=== PATIENT | female | born 1950 | race Caucasian/White ===

== ENCOUNTER → 2020-08-15 11:41 | Outpatient (BNVA) | payer OTHER, SELFPAY | PROVIDERS: PCP Internal Medicine; Referring Provider Dermatology; Visit Provider Orthopaedic Surgery | DX: M54.9 Dorsalgia, unspecified (principal) | CPT/HCPCS: 72110 ==

== ENCOUNTER 2020-08-30 09:27 | Outpatient (CLI) | payer MEDICARE, MEDICAID, SELFPAY ==
--- NOTE | 2020-08-30 09:30 | USCV_ITS ---
Cassi Hyman Age: 70 Gender: F : 1950 Exam Date: 08/30/2020 09:53 Ordering Phys: Eusebio Damon MD Technologist: Nida Clarke [place] [facility] [place]: NSTEMI BP: 101 / 49 HR: 73 Rhythm: Sinus Technical Quality: Adequate MEASUREMENTS (Male / Female) Normal Values 2D ECHO LV Diastolic Diameter PLAX 3.8 cm 4.2 - 5.9 / 3.9 - 5.3 cm LV Systolic Diameter PLAX 2.1 cm LV Chamber Size 3.1 cm IVS Diastolic Thickness 1.1 cm 0.6 - 1.0 / 0.6 - 0.9 cm IVS Systolic Thickness 1.2 cm LVPW Diastolic Thickness 1.6 cm 0.6 - 1.0 / 0.6 - 0.9 cm LVPW Systolic Thickness 1.3 cm RV Chamber Size 2.3 cm LVOT Diameter 2.1 cm LV Ejection Fraction 2D Teich 77.8 % LV Ejection Fraction MOD 2C 72.7 % LV Ejection Fraction 2C AL 76.5 % LA Diameter 4.4 cm LA Width 2.5 cm LA Height 5.2 cm RA Width 3.4 cm RA Height 4.6 cm Aorta at Sinotubular Diameter 2.5 cm M-MODE LV Diastolic Diameter MM 4.2 cm 4.2 - 5.9 / 3.9 - 5.3 cm LV Systolic Diameter MM 2.9 cm LV Ejection Fraction MM Teich 60.4 % IVS Diastolic Thickness MM 1.1 cm 0.6 - 1.0 / 0.6 - 0.9 cm IVS Systolic Thickness MM 1.5 cm LVPW Diastolic Thickness MM 1.0 cm 0.6 - 1.0 / 0.6 - 0.9 cm LVPW Systolic Thickness MM 1.7 cm RV Diastolic Diameter MM 0.7 cm Aortic Annulus Diameter 2.7 cm LA Ao Ratio MM 1.9 MV E Point Septal Separation 0.3 cm DOPPLER AV Peak Velocity 176.0 cm/s LVOT Peak Velocity 95.0 cm/s AV Area Cont Eq vti 2.0 cm squared AV Area Cont Eq pk 1.8 cm squared MV Area PHT 3.1 cm squared MV E' Velocity 57.5 cm/s Mitral E to MV E' Ratio 10.8 Mitral E to LV E' Lateral Ratio 12.5 Mitral E to LV E' Septal Ratio 9.5 TR Peak Velocity 215.5 cm/s TR Peak Gradient 18.6 mmHg TR Mean Velocity 166.0 cm/s TR Mean Gradient 11.9 mmHg TR Velocity Time Integral 54.4 cm TV Peak E Velocity 76.0 cm/s Right Atrial Pressure 3.0 mmHg Pulmonary Artery Systolic Pressu 21.6 mmHg PV Peak Velocity 53.0 cm/s RV Acceleration Time 0.1 s RV Ejection Time 0.3 s RV AcT/ET 0.5 FINDINGS Left Ventricle Normal left ventricular size, systolic function and wall thickness, with no regional wall motion abnormalities. Left ventricular ejection fraction is estimated at 60-65 %. Normal diastolic function. Right Ventricle Normal right ventricular size and systolic function. Right ventricular systolic pressure 21.6 mmHg. Right Atrium Normal right atrial size. Right atrial pressure estimated at 3 mm Hg. Left Atrium Normal left atrial size. Mitral Valve Structurally normal mitral valve. No mitral valve stenosis. Trace mitral valve regurgitation. Aortic Valve Mildly thickened trileaflet aortic valve. No aortic valve stenosis. No aortic valve regurgitation. Tricuspid Valve Structurally normal tricuspid valve. Trace tricuspid valve regurgitation. Pulmonic Valve Pulmonic valve not well visualized. Pericardium No pericardial effusion. Aorta Normal sized inferior vena cava with normal respiratory variations. CONCLUSIONS 1. Normal left ventricular size, systolic function and wall thickness, with no regional wall motion abnormalities. Left ventricular ejection fraction is estimated at 60-65 %. Normal diastolic function. 2. Normal right ventricular size and systolic function. 3. No significant valvular abnormality. 4. Normal pulmonary artery pressure. 5. No prior similar studies to compare. Sarah Simon MD (Electronically Signed) Final Date: 30 August 2020 20:41 S
== END 2020-08-30 09:28 | disposition home or self-care (01) ==
LOC: RAD 09:37
PROVIDERS: PCP Internal Medicine; Visit Provider Internal Medicine Pulmonary Disease
DX: I50.32 Chronic diastolic (congestive) heart failure (principal)
CPT/HCPCS: 93306

== ENCOUNTER 2020-09-02 20:00 | Outpatient (CLI) | payer MEDICARE, MEDICAID, SELFPAY | END 2020-09-02 20:01 | disposition home or self-care (01) | LOC: SLEEP 09-03 09:07 | PROVIDERS: PCP Internal Medicine; Visit Provider Internal Medicine Pulmonary Disease | DX: G47.33 Obstructive sleep apnea (adult) (pediatric) (principal) | CPT/HCPCS: 95811 ==

== ENCOUNTER → 2020-09-03 16:10 | Outpatient (BNVA) | payer MEDICARE, MEDICAID, SELFPAY | PROVIDERS: PCP Internal Medicine; Visit Provider Internal Medicine Cardiovascular Disease | DX: I50.32 Chronic diastolic (congestive) heart failure (principal); I50.33 Acute on chronic diastolic (congestive) heart failure; R06.02 Shortness of breath; R07.89 Other chest pain; I48.0 Paroxysmal atrial fibrillation; I10 Essential (primary) hypertension; G47.33 Obstructive sleep apnea (adult) (pediatric); Z71.6 Tobacco abuse counseling | CPT/HCPCS: 80048; 83880 ==

== ENCOUNTER 2020-09-11 12:31 | Outpatient (CLI) | payer MEDICARE, MEDICAID, SELFPAY ==
--- NOTE | 2020-09-11 13:00 | MR_ITS ---
WS: [id number] MRI LUMBAR SPINE NONCONTRAST HISTORY: M48.061 - Spinal stenosis, lumbar region without neurogenic claudication COMPARISON: None available. TECHNIQUE: Sagittal and axial multisequence imaging is submitted. Moderate increase in the cervical lordosis and thoracic kyphosis. Slight increase in the lower lumbar lordotic curvature. Posterior vertebral body alignment is normal. Less than 2 mm anterolisthesis of L5. No marrow edema or fractures. Disc spaces and vertebral body heights are well-preserved. Conus terminates normally at L1-2 disc level. L1-L2: Normal. L2-L3: Normal. L3-L4: Normal. L4-L5: No disc herniations or protrusions. The nerve roots are becoming slightly clumped in the perip beena of the thecal sac. L5-S1: Mild bilateral facet joint arthritis and annular disc bulge. No significant stenosis or disc p rotrusions. Nerve roots are distributed within the periphery of the thecal sac. Mild hepatomegaly. Liver measures 18 cm in length. MR/MR lumbar spine wo con* [id number] IMPRESSION: 1. No significant lumbar stenosis or disc protrusions. 2. Nerve roots are becoming clumped within the thecal sac beginning at the L4- 5 level. Developing mild arachnoiditis should be considered. 3. Mild hepatomegaly.
== END 2020-09-11 12:32 | disposition home or self-care (01) ==
LOC: RADSHAW 12:36
PROVIDERS: PCP Internal Medicine; Visit Provider Orthopaedic Surgery
DX: M48.061 Spinal stenosis, lumbar region without neurogenic claudication (principal); R16.0 Hepatomegaly, not elsewhere classified
CPT/HCPCS: 72148

== ENCOUNTER 2020-10-18 06:01 | Emergency (ER) | payer MEDICARE, MEDICAID, SELFPAY ==
[2020-10-18] VITALS (9 sets, daily range): BP systolic 100–142; BP diastolic 43–80; PULSE 62–71; RESP 12–20; TEMP 36.5; O2SAT 96–97; BMI 40.2
--- NOTE | 2020-10-18 06:12 | XRR_ITS ---
PROCEDURE INFORMATION: Exam: XR Right Knee Exam date and time: 10/18/2020 6:14 AM Age: 70 years old Clinical indication: Injury or trauma; Fall; Blunt trauma; Knee; Right; Injury date: Today; Additional info: Pain after fall TECHNIQUE: Imaging protocol: XR Right knee. Views: 3 views. COMPARISON: No relevant prior studies available. FINDINGS: Bones/joints: No fracture. No dislocation. No joint effusion. Soft tissues: Mild increased density and stranding in the subcutaneous tissue of the anteromedial knee compatible with a contusion given the history of trauma. XR/XR knee RT 3V* [id number] IMPRESSION: Superficial soft tissue injury without osseous injury.
--- NOTE | 2020-10-18 06:13 | ECG_ITS ---
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
--- NOTE | 2020-10-18 06:22 | ED_ITS ---
HPI - Fall General: Chief Complaint: Fall Stated Complaint: fall and hypotension Time Seen by Provider: 10/18/20 06:04 History of Present Illness: HPI Narrative: 70-year-old female presents from residential via ambulance with complaint of hypotension and a fall. She fell at the residential skinned her right knee is complaining of some neck and head pain she has a history of atrial fibrillation and is on anticoagulants. There is no loss of consciousness. correction reported hypotension however she presents with a blood pressure of 113/50. Medications reviewed. MD complaint: fall Onset (ago): minute(s) Fall from: standing Fall witnessed: yes, by living facility staff Place fall occurred: residential/SNF Loss of consciousness: None Prolonged down time: no Context: tripped/slipped Location of injury: head and neck Location of injury - extremities: Right: knee Severity: mild Quality: aching Associated symptoms-after fall: Reports difficulty walking, headache(s) and neck pain; Denies abdominal pain, chest pain, confusion, hematuria, lightheadedness, numbness, short of breath, vertigo or weakness Review of Systems Const: Denies: fever(s), chills, body aches, change in appetite, fatigue or malaise ENMT: Denies: throat pain, ear or mastoid pain, nasal discharge or nasal congestion Card: Denies: chest pain or lightheadedness Resp: Denies: dyspnea, productive cough or non-productive cough GI: Denies: abdominal pain : Denies: hematuria Musc: Reports: neck pain Skin/Breast: Denies: rash or pruritus Neuro: Reports: headache(s) and difficulty walking; Denies: vertigo or confusion PFS ED PFSH: Medical History Atrial fibrillation CHF (congestive heart failure) COPD (chronic obstructive pulmonary disease) H/O: stroke PAD (peripheral artery disease) Family History Grandfather No problems noted. Father CAD (coronary artery disease) Brother CAD (coronary artery disease) Cancer Mother Cancer Sister Cancer Lung disease Daughter Stroke Denies family history of Diabetes Clotting disorder Dementia Chronic kidney disease (CKD) Suicide Anesthesia complication Bleeding disorder Social History (Reviewed 10/18/20 @ 06:36 by MORRO Pate Smoking and tobacco status: current every day smoker cigarettes [ Other cigarette details: [id number] ] Quit status (tobacco): considering quitting Second hand smoke exposure: No Smoking risk assessment/counseling performed?: Yes Alcohol intake: never Desire information about alcohol rehabilitation?: No Counseling given: No Caregiver/support person: Yes Lives independently: Yes Household members: other Housing: [facility] Marital status: Current occupational status: disabled Pets and animals: No History of recent travel: No Current gender identity: Female Physical Exam Const: COMMON NORMALS: no acute distress GENERAL APPEARANCE: cooperative and comfortable HENMT: COMMON NORMALS: normocephalic, atraumatic and hearing grossly normal bilaterally HEAD & SCALP: normocephalic and atraumatic Neck/C-Spine: COMMON NORMALS: no lymphadenopathy, supple and no JVD GENERAL: No lymphadenopathy CERVICAL SPINE: Yes pain with cervical ROM, Yes loss of normal cervical lordosis and Yes Cervical spine tenderness Resp: COMMON NORMALS: normal respiratory effort, No retractions, No use of accessory muscles and clear to auscultation bilaterally AUSCULTATION: clear to auscultation bilaterally Cardio: COMMON NORMALS: no JVD, regular rate, regular rhythm and No murmurs present (Cardio) RATE: regular rate RHYTHM: regular rhythm GI: COMMON NORMALS: Soft to palpation and No hepatosplenomegaly present AUSCULTATION: Yes normoactive bowel sounds PALPATION: Yes Soft to palpation, No Tenderness to palpation present (GI), No Guarding due to palpation present (GI) and Yes No hepatosplenomegaly present Extremity: OTHER: Superficial abrasion lateral portion of the patella of the right knee no joint effusion mild tenderness with palpation no deformity neurovascularly intact Skin: COMMON NORMALS: no rashes or lesions noted GENERAL SKIN EXAM: no rashes or lesions noted Course Vital Signs: Vital signs: Vital Signs Temperature 97.7 F 10/18/20 06:02 Pulse Rate 65 10/18/20 08:01 Respiratory Rate 12 10/18/20 08:01 Blood Pressure 100/57 10/18/20 08:01 Pulse Oximetry 97 10/18/20 08:01 MDM - Fall MDM Narrative: Medical decision making narrative: Reported to be hypotensive at the residential blood pressures have been adequate here. Her creatinine is up a little bit from her usual baseline additionally she is mildly bradycardic a t one brief episode where she dropped into the 30s but resolved spontaneously. I think it would benefit her to decrease her Lasix. Recent echocardiogram showed a normal systolic function normal diastolic function. Additionally will decrease her Cardizem because of her bradycardia. Lasix to 20 mg daily Cardizem 280 mg daily follow-up with your primary care doctor return if worsens. Her imaging was normal. Lab Data: Labs: Lab Results 10/18/20 10/18/20 10/18/20 Range/Units 06:41 06:41 07:26 WBC 7.6 (4.0-10.0) 10^3/ uL RBC 4.04 L (4.1-5.3) 10^6/u L Hgb 12.0 (11.5-15.3) g/dL Hct 37.3 (37.0-47.0) % MCV 92.3 (81-99) fL MCH 29.7 (28.0-34.0) pg MCHC 32.2 (30.0-36.0) g/dL RDW 14.7 (12.1-15.1) % Plt Count 267 (130-400) 10^3/c mm MPV 9.0 (7.4-10.4) fL Neut % (Auto) 46.1 % Lymph % (Auto) 44.2 % [place] % (Auto) 6.3 % Eos % (Auto) 2.2 % Baso % (Auto) 0.8 % Neut # (Auto) 3.48 (1.8-7.7) 10^3/u L Lymph # (Auto) 3.3 (0.8-4.8) 10^3/u L Garden # (Auto) 0.5 (0.2-0.9) 10^3/u L Eos # (Auto) 0.2 (0.0-0.8) 10^3/u L Baso # (Auto) 0.1 (0.0-0.1) 10^3/u L Nucleated RBC % (a uto) 0 % Nucleated RBCs # 0.0 /100WBC Sodium 132 L (136-145) mmol/L Potassium 4.3 (3.5-5.1) mmol/L Chloride 95 L (98-107) mmol/L Carbon Dioxide 28 (22-29) mmol/L Anion Gap 13.3 (5-19) BUN 29 H (8-23) mg/dL Creatinine 1.2 H (0.5-0.9) mg/dL GFR Calculation 44.7 L (90-130) mL/min Glucose 97 (65-115) mg/dL Calculated Osmolal ity 280 L (285-295) mOsm/k g Calcium 9.4 (8.5-10.5) mg/dL Total Bilirubin 0.3 (0.15-1.2) mg/dL AST 13 (0-32) U/L ALT 13 (0-33) U/L Alkaline Phosphata se 75 (35-105) IU/L Total Protein 7.5 (6.6-8.7) g/dL Albumin 4.4 (3.5-5.2) g/dL Globulin 3.1 (1.3-4.6) g/dL Urine Color Yellow (Yellow) Urine Appearance Clear (CLEAR) Urine pH 5 (5-7) Ur Specific Gravit y 1.015 (1.005-1.030) Urine Protein Neg (Negative) Urine Glucose (UA) Norm (Normal) Urine Ketones Negative (Negative) Urine Blood Neg (Negative) Urine Nitrate Negative (Negative) Urine Bilirubin Neg (Negative) Urine Urobilinogen Norm (Negative) mg/dL Ur Leukocyte Sydney ase Negative (Negative) Discharge Plan Discharge Patient Disposition: Home Clinical Impression: Accident due to mechanical fall without injury, Atrial fibrillation, Bradycardi a, Hypotension Condition: Stable Prescriptions: Changed Lasix 40 mg tablet 20 mg PO DAILY Qty: 30 RF: 5 diltiazem HCl 240 mg capsule,extended release 24hr 180 mg PO DAILY Qty: 0 RF: 0 No Action gabapentin 300 mg capsule 300 mg PO TID RF: 0 levothyroxine 88 mcg capsule 88 mcg PO DAILY RF: 0 lisinopril 20 mg tablet 20 mg PO DAILY RF: 0 nitroglycerin 0.4 mg tablet, sublingual 0.4 mg SUBLINGUAL Q5M PRNRF: 0 citalopram 10 mg tablet 10 mg PO DAILY RF: 0 simvastatin 20 mg tablet 20 mg PO DAILY RF: 0 rivaroxaban 20 mg tablet 20 mg PO DAILY RF: 0 Anoro Ellipta 62.5-25 mcg/actuation blister with device 1 inh inhalation DAILY Qty: 60 RF: 3 isosorbide mononitrate 30 mg tablet extended release 24 hr 30 mg PO DAILY Qty: 30 RF: 3 albuterol sulfate [Ventolin HFA] 90 mcg/actuation HFA aerosol inhaler 2 puff inhalation Q2H PRNRF: 0 alprazolam 0.5 mg tablet 0.5 mg PO TID PRN (Reason: anxiety) RF: 0 omeprazole 20 mg capsule,delayed release(DR/EC) 20 mg PO DAILY RF: 0 bisacodyl 10 mg suppository 10 mg DE DAILY PRNRF: 0 magnesium hydroxide [Milk of Magnesia] 400 mg/5 mL suspension 5 ml PO DAILY PRNRF: 0 acetaminophen [Tylenol 8 Hour] 650 mg tablet extended release 650 mg PO Q12H PRN (Reason: fever or pain) RF: 0 sennosides [senna] 8.6 mg tablet 8.6 mg PO DAILY RF: 0 polyethylene glycol 3350 [Miralax] 17 gram/dose powder 17 g PO DAILY RF: 0 alum-mag hydroxide-simeth [Mylanta Maximum Strength] 400-400-40 mg/5 mL suspension 5 ml PO QID PRNRF: 0 oxycodone-acetaminophen [Percocet] 5-325 mg tablet 1 tab PO Q6H PRNRF: 0 potassium chloride 20 mEq tablet extended release 20 meq PO DAILY Qty: 30 RF: 5 Discharge Orders: Discharge ED (Routine); Ordered 10/18/20 Ordered By: Cam Rodriguez Referrals: Momo Murray MD [Primary Care Provider] - Discharge Diet: Usual diet Discharge Activity: Resume usual activity Patient Instructions: Opioid Safety Activity Restrictions/Additional Instructions: Decrease Lasix and Cardizem. Monitor blood pressure and heart rate and report to attending. Coding Level of Care Code ED Bill Cutter for Chg Fwd Exam Detailed
--- NOTE | 2020-10-18 06:28 | CTR_ITS ---
PROCEDURE INFORMATION: Exam: CT Cervical Spine Without Contrast Exam date and time: 10/18/2020 6:37 AM Age: 70 years old Clinical indication: Neck pain; Additional info: Neck pain after fall TECHNIQUE: Imaging protocol: Computed tomography images of the cervical spine without contrast. Radiation optimization: All CT scans at this facility use at least one of these dose optimization techniques: automated exposure control; mA and/or kV adjustment per patient size (includes targeted exams where dose is matched to clinical indication); or iterative reconstruction. COMPARISON: CT Cervical Spine wo* [id number] 11/11/2017 10:43 PM RADIATION DOSE METRICS: Total DLP (mGy-cm): 1146.58 FINDINGS: Bones/joints: No acute fracture. Discs/Spinal canal/Neural foramina: Degenerative changes including mild disc space narrowing, endplate spurring and osteophytes. No critical central canal stenosis. Lungs: No pneumothorax. Soft tissues: Unremarkable. CT/CT cervical spin wo con* [id number] IMPRESSION: No acute fracture. Radiation Dose CTDIVOL = (mGy): DLP = 1146.58 (mGy-cm)
--- NOTE | 2020-10-18 06:29 | CTR_ITS ---
PROCEDURE INFORMATION: Exam: CT Head Without Contrast Exam date and time: 10/18/2020 6:37 AM Age: 70 years old Clinical indication: Injury or trauma; Fall; Blunt trauma (contusions or hematomas); Additional info: Fall, on anticoagulants TECHNIQUE: Imaging protocol: Computed tomography of the head without contrast. Radiation optimization: All CT scans at this facility use at least one of these dose optimization techniques: automated exposure control; mA and/or kV adjustment per patient size (includes targeted exams where dose is matched to clinical indication); or iterative reconstruction. COMPARISON: CT head wo con* [id number] 11/11/2017 10:41 PM RADIATION DOSE METRICS: Total DLP (mGy-cm): 1030.78 FINDINGS: Brain: Right MCA distribution encephalomalacia. Mejía-white matter differentiation is otherwise preserved. No edema, mass effect or midline shift. No acute intracranial hemorrhage. Cerebral ventricles: No ventriculomegaly. Bones/joints: No acute fracture. Paranasal sinuses: Visualized sinuses are unremarkable. No fluid levels. Mastoid air cells: No mastoid effusion. Soft tissues: Unremarkable. CT/CT head wo con* [id number] IMPRESSION: No acute intracranial abnormality. Radiation Dose CTDIVOL = (mGy): DLP = 1030.78 (mGy-cm)
[2020-10-18 06:51] LABS: Basophils # 0.1 10^3/uL (0.0-0.1); Basophils % 0.8 %; Eosinophils # 0.2 10^3/uL (0.0-0.8); Eosinophils % 2.2 %; Hematocrit 37.3 % (37.0-47.0); Lymphocytes # 3.3 10^3/uL (0.8-4.8); Lymphocytes % 44.2 %; Mean Corpuscular HGB Conc 32.2 g/dL (30.0-36.0); Mean Corpuscular Hemoglobin 29.7 pg (28.0-34.0); Mean Corpuscular Volume 92.3 fL (81-99); Monocytes # 0.5 10^3/uL (0.2-0.9); Monocytes % 6.3 %; Neutrophils # 3.48 10^3/uL (1.8-7.7); Neutrophils % 46.1 %; Nucleated Red Blood Cells % 0 %; Platelet Count 267 10^3/cmm (130-400); Red Blood Count 4.04 10^6/uL (4.1-5.3); Red Cell Distribution Width 14.7 % (12.1-15.1); White Blood Count 7.6 10^3/uL (4.0-10.0)
[2020-10-18 07:06] LABS: Alanine Aminotransferase 13 U/L (0-33); Albumin Level 4.4 g/dL (3.5-5.2); Alkaline Phosphatase 75 IU/L (35-105); Anion Gap 13.3 (5-19); Aspartate Amino Transferase 13 U/L (0-32); Blood Urea Nitrogen 29 mg/dL (8-23); Calcium 9.4 mg/dL (8.5-10.5); Carbon Dioxide 28 mmol/L (22-29); Chloride 95 mmol/L (98-107); Globulin 3.1 g/dL (1.3-4.6); Glomerular Filtration Rate 44.7 mL/min (90-130); Glucose 97 mg/dL (65-115); Osmolality Calculated 280 mOsm/kg (285-295); Potassium 4.3 mmol/L (3.5-5.1); Sodium 132 mmol/L (136-145); Total Bilirubin 0.3 mg/dL (0.15-1.2); Total Protein 7.5 g/dL (6.6-8.7)
[2020-10-18 07:33] LABS: Add Urine Microscopic? NO; Charge for UA Resulting for Rev
[2020-10-18 07:46] LABS: Bilirubin Urine Neg (Negative); Blood Urine Neg (Negative); Glucose Urine UA Norm (Normal); Ketones Urine Negative (Negative); Leukocyte Esterase Urine Negative (Negative); Nitrate Urine Negative (Negative); Protein Urine Neg (Negative); Specific Gravity, Urine 1.015 (1.005-1.030); Urine Appearance Clear (CLEAR); Urine Color Yellow (Yellow); Urobilinogen Urine Norm (Negative); pH Urine 5 (5-7)
[2020-10-18] MEDS: sodium chloride 0.9% 1,000 ML 999 ML IV (07:58)
[2020-10-18] MEDS: oxyCODONE-APAP 5-325 mg Tablet 1 TAB PO (12:53)
--- NOTE | 2020-10-18 13:17 | PC.NURSE ---
pain medication given, patient tolerated well. no acute distress noted at this time.
--- NOTE | 2020-10-18 14:33 | PC.NURSE ---
patient stated she felt better, tolerated pain well at this time.
== END 2020-10-18 14:33 | disposition home or self-care (01) ==
PROVIDERS: Emergency Provider Family Medicine; PCP Internal Medicine
DX: I95.9 Hypotension, unspecified (principal); W18.30XA Fall on same level, unspecified, initial encounter; I48.91 Unspecified atrial fibrillation; Z79.01 Long term (current) use of anticoagulants; R00.1 Bradycardia, unspecified; Z79.891 Long term (current) use of opiate analgesic; F17.210 Nicotine dependence, cigarettes, uncomplicated; I50.9 Heart failure, unspecified; J44.9 Chronic obstructive pulmonary disease, unspecified; Z86.73 Personal history of transient ischemic attack (TIA), and cerebral infarction without residual deficits; I73.9 Peripheral vascular disease, unspecified
CPT/HCPCS: 70450; 72125; 73562; 80053; 81003; 85025; 93005; 96360; 99284; J7030

== ENCOUNTER 2020-11-01 10:46 | Outpatient (CLI) | payer MEDICARE, MEDICAID, SELFPAY ==
--- NOTE | 2020-11-01 10:55 | CT_ITS ---
WS: [id number] LDCT LUNG CANCER SCREENING TECHNIQUE: Noncontrast CT of the chest with coronal and sagittal reformatted images. CLINICAL INFORMATION: NICOTINE DEPENDENCE,CIGARETTES COMPARISON: None. DLP: 57.75 mGy.cm DIvol: 1.[address] scans at [facility] use at least one of these dose optimization techniques: automat ed exposure control; mA and/or kV adjustment per patient size (includes targeted exams where dose is matched to clinical indication); or iterative reconstruction. FINDINGS: Mild chronic emphysematous changes. No acute pulmonary infiltrates. No consolidation pleural fluid. N o mediastinal or hilar lymphadenopathy. Aortic calcification. Coronary calcification. Small esophagea l hiatal hernia. Adrenal glands are normal. No axillary lymphadenopathy. Normal thoracic spine. Tiny noncalcified 2 mm nodule left lower lobe. CT/CT lung screening [id number] IMPRESSION: LUNG-RADS: 2-Benign Appearance or Behavior FOLLOW UP: 12 Month: Continue annual screening with LDCT
== END 2020-11-01 10:47 | disposition home or self-care (01) ==
LOC: RAD 10:50
PROVIDERS: PCP Internal Medicine; Visit Provider Internal Medicine Pulmonary Disease
DX: Z12.2 Encounter for screening for malignant neoplasm of respiratory organs (principal); F17.210 Nicotine dependence, cigarettes, uncomplicated; R91.1 Solitary pulmonary nodule
CPT/HCPCS: 71271

== ENCOUNTER 2020-11-07 11:53 | Outpatient (RCR) | payer MEDICARE, MEDICAID, SELFPAY | END 2020-11-08 23:59 | disposition home or self-care (01) | LOC: PULRHB 11:53 | PROVIDERS: PCP Internal Medicine; Visit Provider Internal Medicine Pulmonary Disease | DX: J44.9 Chronic obstructive pulmonary disease, unspecified (principal) | CPT/HCPCS: 94618 ==

== ENCOUNTER → 2021-02-07 09:21 | Outpatient (BNVA) | payer MEDICARE, MEDICAID, SELFPAY | PROVIDERS: PCP Internal Medicine; Referring Provider Orthopaedic Surgery; Visit Provider Anesthesiology Pain Medicine | DX: G89.29 Other chronic pain (principal); M47.816 Spondylosis without myelopathy or radiculopathy, lumbar region; M54.2 Cervicalgia; F17.210 Nicotine dependence, cigarettes, uncomplicated; Z79.891 Long term (current) use of opiate analgesic | CPT/HCPCS: 99204 ==

== ENCOUNTER 2021-02-10 07:15 | Outpatient (CLI) | payer MEDICARE, MEDICAID, SELFPAY ==
--- NOTE | 2021-02-10 07:40 | NMCV_ITS ---
NM fairda perf SPECT r/s* [id number] Boogie Cassi Age: 70 Gender: F : 1950 Exam Date: 02/10/2021 08:57 Ordering Phys: Kirk Dias MD ([email or web address]) Technologist: ABEL Daniel Exam Location: [facility] Indications: CHEST PAIN STRESS TEST Please see separate stress test report in [facility] for full findings IMAGE PROTOCOL Rest/Stress 1 Lexiscan Day Radiopharmaceutical Dose (mCi) Administration Site Administered by Rest: Tc-99m 10.7 IV ABEL Daniel Sestamibi Stress:Tc-99m 32.8 IV ABEL Chowdhury Sestamibi Rest: 10-Feb-2021 60 Discovery 630 Stress: 10-Feb-2021 30 Discovery 630 0.4mg Lexiscan. Supine position only as patient was unable to lay prone. SPECT RESULTS Technical Quality: Good Raw Data Analysis: Normal Image Corrections: No attenuation or motion correction applied Summed Stress Score: 0 Summed Rest Score: 1 Summed Difference Score: 0 PERFUSION FINDINGS A small area of slightly decreased tracer uptake was noted on the apical inferior wall region, with no significant reversibility FUNCTIONAL RESULTS (calculated via Gated SPECT) Stress Image LV EF (%): 83 Stress EDV (mL):76 TID: 1.17 Stress ESV (mL):13 FUNCTIONAL FINDINGS: Segmental wall motion analysis revealing no gross wall motion normalities IMPRESSIONS 1. A small area of slightly decreased persistent tracer uptake in the apical inferior wall region, suggestive of myocardial scarring versus attenuation artifact. 2. Normal LV ejection fraction of 83% 3. LV wall motion analysis revealing no gross wall motion normalities. 4. Normal LV volume. 5. Slightly increased transient ischemic dilatation ratio, may suggest endocardial ischemia. However the positive predictive value of this finding especially in the absence of any other abnormal objective findings is very low. Dr Kirk Dias MD FAC (Electronically Signed) Final Date: 16 February 2021 18:44 S
--- NOTE | 2021-02-10 07:40 | ECG_ITS ---
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 Interpretive Statements NAME OF STUDY: LEXISCAN SESTAMIBI STRESS TEST INDICATION: Chest Pain, PROCEDURE: At the baseline, the EKG revealed atrial fibrillation with a controlled ventricular response rate of 53 bpm. Poor R wave progression. Some nonspecific ST changes. The baseline blood pressure was 106/57 mm Hg with a heart rate of 53 beats/min. Lexiscan was infused over a period of 20 seconds. A total of 0.4 milligrams of Lexiscan was infused. The stress phase was continued for a total of 5 minutes. Heart rate at the end of the stress phase was 73 with a blood pressure 100/61. The EKG at the peak infusion revealed no significant changes. Sestamibi was injected 20 seconds after the Lexiscan infusion. Blood pressure at the end of the recovery phase was 97/50 with a heart rate of 61 per minute. CONCLUSION: 1. No significant EKG changes with the LexiScan infusion 2. No LexiScan induced chest pain or cardiac arrhythmia 3. Normal blood pressure and heart rate response 4. Sestamibi/sestamibi perfusion scan pending; see separate report. Electronically Signed On 02-17-2021 9:57:49 CDT by Kirk Dias M.D. [id number]
[2021-02-10 07:50] VITALS: BMI 33.1
[2021-02-10] MEDS: regadenoson 0.4 Mg/5 ml Syringe IVP (09:45)
[2021-02-10] MEDS: ondansetron 2 mg/ML SDV 2 mL 4 MG IVP (09:55)
[2021-02-10 10:00] VITALS: BP 122/55; PULSE 66
== END 2021-02-10 07:16 | disposition home or self-care (01) ==
LOC: RAD 07:20 → CDL 07:44
PROVIDERS: PCP Internal Medicine; Visit Provider Internal Medicine Cardiovascular Disease
DX: R07.9 Chest pain, unspecified (principal)
CPT/HCPCS: 78452; 93017; A9500; J2405; J2785

== ENCOUNTER → 2021-02-18 12:59 | Outpatient (BNVA) | payer MEDICARE, MEDICAID, SELFPAY | PROVIDERS: PCP Internal Medicine; Visit Provider Anesthesiology Pain Medicine | DX: G89.29 Other chronic pain (principal); M47.816 Spondylosis without myelopathy or radiculopathy, lumbar region; M54.2 Cervicalgia; F17.210 Nicotine dependence, cigarettes, uncomplicated; Z79.891 Long term (current) use of opiate analgesic | CPT/HCPCS: 64493; 64494; 64495; J3490 ==

== ENCOUNTER → 2021-02-27 12:20 | Outpatient (BNVA) | payer MEDICARE, MEDICAID, SELFPAY | PROVIDERS: PCP Internal Medicine; Visit Provider Internal Medicine Cardiovascular Disease | DX: I50.33 Acute on chronic diastolic (congestive) heart failure (principal); R06.02 Shortness of breath; I48.91 Unspecified atrial fibrillation; I10 Essential (primary) hypertension | CPT/HCPCS: 80048; 83880 ==

== ENCOUNTER → 2021-09-30 13:24 | Outpatient (BNVA) | payer MEDICARE, MEDICAID, SELFPAY | PROVIDERS: PCP Internal Medicine; Visit Provider Internal Medicine Cardiovascular Disease | DX: G47.33 Obstructive sleep apnea (adult) (pediatric) (principal); I48.20 Chronic atrial fibrillation, unspecified; J44.9 Chronic obstructive pulmonary disease, unspecified; I11.0 Hypertensive heart disease with heart failure; I50.32 Chronic diastolic (congestive) heart failure; F17.210 Nicotine dependence, cigarettes, uncomplicated | CPT/HCPCS: 99214 ==

== ENCOUNTER → 2022-03-03 12:52 | Outpatient (BNVA) | payer MEDICARE, MEDICAID, SELFPAY | PROVIDERS: PCP Internal Medicine; Visit Provider Surgery | DX: K59.00 Constipation, unspecified (principal) | CPT/HCPCS: 99203 ==

== ENCOUNTER → 2022-04-15 13:08 | Outpatient (BNVA) | payer MEDICARE, MEDICAID, SELFPAY | PROVIDERS: PCP Internal Medicine; Visit Provider Nurse Practitioner Family | DX: I11.0 Hypertensive heart disease with heart failure (principal); I50.32 Chronic diastolic (congestive) heart failure; Z87.891 Personal history of nicotine dependence | CPT/HCPCS: 93005; 99214 ==

== ENCOUNTER → 2022-07-23 14:01 | Outpatient (BNVA) | payer MEDICARE, MEDICAID, SELFPAY | PROVIDERS: PCP Internal Medicine; Visit Provider Podiatrist Foot & Ankle Surgery | DX: L60.3 Nail dystrophy (principal); L60.8 Other nail disorders; I73.9 Peripheral vascular disease, unspecified | CPT/HCPCS: 11721 ==

== ENCOUNTER → 2022-10-08 13:00 | Outpatient (BNVA) | payer MEDICARE, MEDICAID, SELFPAY | PROVIDERS: PCP Internal Medicine; Visit Provider Podiatrist Foot & Ankle Surgery | DX: I73.9 Peripheral vascular disease, unspecified (principal); L60.3 Nail dystrophy; L60.8 Other nail disorders | CPT/HCPCS: 11721 ==

== ENCOUNTER → 2022-10-21 14:25 | Outpatient (BNVA) | payer MEDICARE, MEDICAID, SELFPAY | PROVIDERS: PCP Internal Medicine; Visit Provider Internal Medicine Cardiovascular Disease | DX: I50.32 Chronic diastolic (congestive) heart failure (principal); J44.9 Chronic obstructive pulmonary disease, unspecified; I48.20 Chronic atrial fibrillation, unspecified; G47.33 Obstructive sleep apnea (adult) (pediatric); Z87.891 Personal history of nicotine dependence; Z79.82 Long term (current) use of aspirin | CPT/HCPCS: 99214 ==